=== PATIENT | female | born 1975 | race Caucasian/White ===

== ENCOUNTER 2020-09-02 12:24 | Outpatient (REF) | payer OTHER, SELFPAY | END 2020-09-02 12:25 | disposition home or self-care (01) | LOC: HO.HMGCLDS 12:24 | PROVIDERS: PCP Hospitalist; Visit Provider Internal Medicine | DX: Z20.828 Contact with and (suspected) exposure to other viral communicable diseases (principal) | CPT/HCPCS: U0003 ==

== ENCOUNTER 2021-01-13 11:19 | Outpatient (REF) | payer BC, SELFPAY | END 2021-01-13 11:20 | disposition home or self-care (01) | LOC: HO.LAB 11:19 | PROVIDERS: Visit Provider Internal Medicine | DX: Z20.822 Contact with and (suspected) exposure to COVID-19 (principal) | CPT/HCPCS: 36415; C9803; U0003; U0005 ==

== ENCOUNTER 2021-10-23 09:42 | Outpatient (REF) | payer BC, SELFPAY ==
[2021-10-23 11:46] LABS: COVID-19 Test Negative (Negative)
== END 2021-10-23 09:43 | disposition home or self-care (01) ==
LOC: HO.LAB 09:42
PROVIDERS: Visit Provider Internal Medicine
DX: Z20.822 Contact with and (suspected) exposure to COVID-19 (principal)
CPT/HCPCS: 36415; 87635; C9803

== ENCOUNTER 2023-06-14 08:04 | Outpatient (REF) | payer BC, SELFPAY ==
--- NOTE | ~2023-06-14 | MR_ITS ---
EXAMINATION: MR BRAIN WITHOUT AND WITH CONTRAST CLINICAL INFORMATION: Left acoustic neuroma, vertigo COMPARISON: Prior imaging from CT sinus 11/20/2013 not available on PACS at time of dictation TECHNIQUE: Multiplanar, multisequence imaging was obtained without and with intravenous contrast. Intravenous contrast: 7.5 mL Gadavist. FINDINGS: The VII and VIII cranial nerve complexes are normal in course and caliber. No signal abnormality is visualized within the inner ear structures on the precontrast axial T1-weighted sequence. Apparent focal loss of fluid signal intensity at the apex of the right superior semicircular canal without correlate on CT from 11/20/2013, presumably artifactual. Otherwise fluid signal intensity of the membranous labyrinth is preserved. There is no abnormal labyrinthine or intracanalicular enhancement on postcontrast imaging.No cerebellopontine angle lesion. Apparent punctate restricted diffusion within the left ventral medulla without definite correlate on FLAIR may reflect a punctate focus of ischemia versus artifact. There is no significant mass effect or associated hemorrhage. No acute intracranial hemorrhage or extra-axial fluid collection. The ventricles and sulci are normal in size and configuration without significant volume loss or hydrocephalus. No abnormal intraparenchymal or leptomeningeal enhancement. No mass effect or herniation pattern. Normal appearance of the midline structures. Normal intracranial arterial and dural venous sinus flow voids. The orbits are grossly unremarkable. The paranasal sinuses and mastoids are well aerated. The craniocervical junction is intact. Normal marrow signal. MR/MR head/brain wo/w con IMPRESSION: 1. No retrocochlear pathology, specifically without evidence of vestibular schwannoma. 2. Apparent punctate restricted diffusion within the left ventral medulla without definite correlate on FLAIR may reflect a punctate focus of ischemia versus artifact. This finding was communicated to Dr. Talamantes on 06/16/2023 at 6:24 PM.
[2023-06-14] MEDS: gadobutroL 7.5 ML VIAL IVPUSH (08:59)
== END 2023-06-14 08:05 | disposition home or self-care (01) ==
LOC: HO.MRI 08:04
PROVIDERS: PCP Internal Medicine; Visit Provider Otolaryngology
DX: D33.3 Benign neoplasm of cranial nerves (principal); H81.4 Vertigo of central origin
CPT/HCPCS: 70553; A9585